=== PATIENT | male | born 1965 | race Caucasian/White ===

== ENCOUNTER 2017-06-29 01:36 | Emergency (ER) | payer MEDICAID ==
[~2017-06-29] VITALS: Ht 172.7 cm; Wt 94.3 kg
[2017-06-29 02:02] VITALS: Ht 172.7 cm; Wt 94.3 kg
[2017-06-29 03:07] VITALS: BP 148/96
== END 2017-06-29 03:08 | disposition home or self-care (01) ==
LOC: ED 01:36
DX: S76.012A Strain of muscle, fascia and tendon of left hip, initial encounter (principal); X58.XXXA Exposure to other specified factors, initial encounter; Y93.89 Activity, other specified; Y92.89 Other specified places as the place of occurrence of the external cause; Y99.8 Other external cause status

== ENCOUNTER 2017-12-11 23:19 | Emergency (ER) | payer MEDICAID ==
[~2017-12-11] VITALS: Ht 172.7 cm; Wt 98.9 kg
[2017-12-11 23:26] VITALS: Ht 172.7 cm; Wt 98.9 kg
[2017-12-12 05:04] VITALS: BP 147/93
== END 2017-12-12 05:57 | disposition left against medical advice (07) ==
LOC: ED 23:19
DX: Z53.21 Procedure and treatment not carried out due to patient leaving prior to being seen by health care provider (principal)